=== PATIENT | female | born 1955 | race American Indian/Alaskan Native ===

== ENCOUNTER 2016-09-09 09:15 | Outpatient (CLI) | payer OTHER ==
--- NOTE | 2016-09-09 10:09 | Mammography Report ---
Screening mammogram: The patient had this exam on the above date . It was indicated to us that previous films should be available that would be helpful in providing optimal evaluation with regards to the current study. A final report will be issued, pending receipt of the prior study. CAD was utilized. BI-RADS CATEGORY: 0 = Needs additional imaging evaluation ACR BI-RADS MAMMOGRAPHIC CODES: 0 = Needs additional imaging evaluation; 1 = Negative; 2 = Benign; 3 = Probably benign; 4 = Suspicious; 5 = Malignant; 6 = Known biopsy-proven malignancy COMMENT: 1. Dense breast tissue, i.e., adenosis, fibrocystic changes, etc., may obscure an underlying neoplasm. 2. Approximately 10% of cancers are not detected with mammography. 3. A negative mammography report should not delay biopsy if a clinically suspicious mass is present.
== END 2016-09-09 09:16 | disposition home or self-care (01) ==
LOC: MAMMO 09:15
PROVIDERS: ATTEND Internal Medicine
DX: Z12.31 Encounter for screening mammogram for malignant neoplasm of breast (principal)
CPT/HCPCS: 77067; G0202

== ENCOUNTER 2020-09-17 10:43 | Outpatient (CLI) | payer MEDICARE ==
--- NOTE | 2020-09-17 14:50 | PET Report ---
PET CT Indication: Ovarian cancer initial staging. C 56.2 . E11.9 Technique: A total of 15.78 mCi F-18 FDG injected IV per protocol into the left wrist to 11:57 AM wit h a scan time of 12:46 PM on the same day. CT was utilized for dose attenuation and anatomic localiza tion.. The fasting blood glucose measured 95 mg/dL. The scan occurred from the skull base to the uppe r thighs. Comparison: None available Findings: No abnormal radiotracer uptake is identified within the head/neck, chest, or upper abdomen. . There is postoperative change consistent with total abdominal hysterectomy with bilateral nephrecto my. There is some heterogeneous increased hypermetabolic uptake identified in the region of the right pelvic sidewall, SUV max measuring 3.6. There is expected GI and excretion of radiotracer. No abn ormal osseous uptake is appreciated. Incidentally several enlarged cyst are present within both kidne ys. IMPRESSION: Status post total abdominal hysterectomy with bilateral oophorectomy. Mildly increased hy permetabolic uptake identified along the right pelvic sidewall the region of the right obturator. 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 Recommend close attention on fol low-up. No evidence of intrathoracic metastatic disease. Signer Name: Russ Henderson MD Signed: 09/17/2020 2:46 PM Workstation Name: [id number]
== END 2020-09-17 10:44 | disposition home or self-care (01) ==
LOC: PET 10:43
PROVIDERS: ATTEND Internal Medicine Hematology & Oncology
DX: C56.2 Malignant neoplasm of left ovary (principal); E11.9 Type 2 diabetes mellitus without complications; N28.1 Cyst of kidney, acquired; Z90.5 Acquired absence of kidney; Z90.710 Acquired absence of both cervix and uterus
CPT/HCPCS: 78815; 82962; A9552

== ENCOUNTER 2020-12-25 11:47 | Outpatient (CLI) | payer MEDICARE ==
[2020-12-25 12:26] LABS: Blood Urea Nitrogen 9 mg/dL (7-17)
--- NOTE | 2020-12-25 15:40 | Cat Scan Report ---
CT CHEST WITH CONTRAST INDICATION / CLINICAL INFORMATION: MALIGNANT NEOPLASM OF OVARY/UNSPECIFIED LATERALLY OMNI 300 100 ML. TECHNIQUE: Axial CT images were obtained through the chest after IV contrast. [facility] CT scans [facility] are performed using CT dose reduction for ALARA by means of automated exposure control. COMPARISON: PET/CT 09/17/2020 FINDINGS: HEART: No significant abnormality CORONARY ARTERY CALCIFICATION: Multivessel calcifications THORACIC AORTA: No significant abnormality. MEDIASTINUM / HARPREET: No significant abnormality. PLEURA: No pleural effusion. No pneumothorax. LUNGS: No acute air space or interstitial disease. No suspicious nodule or mass ADDITIONAL FINDINGS: Right-sided Port-A-Cath is demonstrated with tip terminating in the distal SVC. There is a approximately 4 to 5 cm soft tissue mass underlying the left latissimus dorsi muscle in th e left lateral chest side wall which demonstrates some internal punctate calcifications. UPPER ABDOMEN: Hepatic steatosis and large left renal cyst. SKELETAL SYSTEM: No significant abnormality. IMPRESSION: 4 to 5 mm soft tissue mass with internal calcifications within the superficial left chest wall underl lexi the left latissimus dorsi muscle. Neoplasm cannot be excluded and percutaneous biopsy is recomme nded. No findings of intrathoracic metastatic disease. No significant interval change compared to reference exam from September 2020. Signer Name: Pierre Scott MD Signed: 12/25/2020 3:36 PM Workstation Name: [id number]
--- NOTE | 2021-01-05 08:05 | Cat Scan Report ---
CT ABDOMEN AND PELVIS WITH CONTRAST INDICATION / CLINICAL INFORMATION: MALIGNANT NEOPLASM OF OVARY/UNSPECIFIED LATERALLY. TECHNIQUE: Axial CT images were obtained through the abdomen and pelvis after 100 cc IV contrast. Sagittal and c oronal reformatted images. All CT scans at this location are performed using CT dose reduction for AL ANGELI by means of automated exposure control. COMPARISON: PET/CT dated 09/17/2020 Comment: This examination is just presented to me for interpretation secondary to technical factors a [facility]. FINDINGS: LOWER CHEST: The visualized lung bases are well-aerated. Previously described 4-5 cm soft tissue mass with calcifications in the left lateral chest wall is again noted. Please refer to CT chest report. LIVER: Mild hepatic steatosis. No enlargement or focal liver lesion is detected. GALLBLADDER: No significant abnormality. BILE DUCTS: No significant abnormality. PANCREAS: No significant abnormality. SPLEEN: No significant abnormality. ADRENALS: No significant abnormality. RIGHT KIDNEY and URETER: Stable scattered right renal cysts with the largest measuring 2.3 cm near mi d pole. LEFT KIDNEY and URETER: Stable cysts at the superior pole of the left kidney with the largest measuri ng 8.2 cm. STOMACH and SMALL BOWEL: No significant abnormality. COLON: No significant abnormality. APPENDIX: No significant abnormality. PERITONEUM: No free fluid. No free air. No fluid collection. LYMPH NODES: No significant adenopathy. AORTA and ARTERIES: No significant abnormality. IVC and VEINS: No significant abnormality. URINARY BLADDER: No significant abnormality. REPRODUCTIVE ORGANS: Stable hysterectomy changes. ADDITIONAL FINDINGS: None. SKELETAL SYSTEM: Stable thoracolumbar spondylosis. No suspicious bony lesion is detected. IMPRESSION: No evidence for disease recurrence or metastasis in the abdomen or pelvis. Stable findings since the PET CT dated 09/17/2020. Signer Name: Ernesto Brooks Jr, MD Signed: 01/05/2021 8:00 AM Workstation Name: [id number]
== END 2020-12-25 11:48 | disposition home or self-care (01) ==
LOC: CT 11:47
PROVIDERS: ATTEND Obstetrics & Gynecology
DX: R22.2 Localized swelling, mass and lump, trunk (principal); C56.9 Malignant neoplasm of unspecified ovary; K76.0 Fatty (change of) liver, not elsewhere classified; N28.1 Cyst of kidney, acquired; I25.10 Atherosclerotic heart disease of native coronary artery without angina pectoris
CPT/HCPCS: 36415; 71260; 74177; 82565; 84520; Q9967

== ENCOUNTER 2020-12-31 11:40 | Outpatient (CLI) | payer MEDICARE ==
--- NOTE | 2020-12-31 14:49 | PET Report ---
PET/CT HISTORY: C56.2 /E 11.9. 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 The patient weighed 175 lbs. The patient wa s injected with 13.4 mCi of FDG in the left antecubital fossa at 1228 and imaging was started at 1322 . The patient was imaged from the skull base to the thighs. All CT scans at this location are perfor med using CT dose reduction for ALARA by means of automated exposure control. Images were reviewed on a workstation. COMPARISON: 09/17/2020 FINDINGS: IMAGED BRAIN: Physiologic FDG uptake. NECK: Physiologic FDG uptake. CHEST WALL: Previously described 3.8 x 2.7 cm soft tissue density lesion with focal calcifications i n the left lateral chest wall is unchanged in size and metabolic activity with max SUV measuring 1.6. . MEDIASTINUM: Physiologic FDG uptake. LUNGS: Physiologic FDG uptake. HEPATOBILIARY: Physiologic FDG uptake. PANCREAS: Physiologic FDG uptake. SPLEEN: Physiologic FDG uptake. KIDNEYS/BLADDER: Physiologic FDG uptake. Stable bilateral renal cysts. ADRENAL GLANDS: Physiologic FDG uptake. GI/MESENTERY: Physiologic FDG uptake. No convincing mesenteric deposits are detected. PELVIC VISCERA: Physiologic FDG uptake. Stable total hysterectomy changes. Previously described upta ke in the right pelvic sidewall has resolved and was presumably postsurgical in nature. LYMPH NODES: Physiologic FDG uptake. OSSEOUS STRUCTURES: Physiologic FDG uptake. ADDITIONAL FINDINGS: None. IMPRESSION: Essentially negative PET/CT. No evidence for disease recurrence or metastasis. No change in the previously described left lateral chest wall lesion since 09/17/2020. The etiology of this is unclear. Signer Name: Ernesto Brooks Jr, MD Signed: 12/31/2020 2:45 PM Workstation Name: [id number]
== END 2020-12-31 11:41 | disposition home or self-care (01) ==
LOC: PET 11:40
PROVIDERS: ATTEND Internal Medicine Hematology & Oncology
DX: C56.2 Malignant neoplasm of left ovary (principal); E11.9 Type 2 diabetes mellitus without complications
CPT/HCPCS: 78815; 82962; A9552

== ENCOUNTER 2021-01-27 09:24 | Day surgery (SDC) | payer MEDICARE ==
[2021-01-27] MEDS ORDERED: HYDROmorphone 1 MG/1 ML INJ IV NR (10:08)
[2021-01-27] MEDS ORDERED: ONDANSETRON 4 MG/2 ML INJ IV NR (10:08)
[2021-01-27 12:13] LABS: INR 0.97 (0.87-1.13)
[2021-01-27 13:36] VITALS: BP 110/64
--- NOTE | 2021-01-27 13:45 | Cat Scan Report ---
CT-GUIDED LYMPH NODE SUPERFICIAL LEFT INDICATION : Soft tissue mass left chest wall. COMPARISON: PET/CT 12/31/2020 PROCEDURE: The risks (including but not limited to bleeding and infection) and benefits were explain ed to the patient and informed consent was obtained. All CT scans at this location are performed usi ng CT dose reduction for ALARA by means of automated exposure control. A time out procedure was performed. The procedure site was prepped and draped in the usual sterile f ashion and lidocaine was used for local anesthesia. 1 mg of IV Dilaudid was used for anxiolysis. Using CT guidance, a 17-gauge introducer needle was advanced to the leading edge of a 4.3 x 2.5 cm so ft tissue mass in the left lateral chest wall. 3 separate 18-gauge core biopsies were obtained. Patho logy was present and deemed the samples adequate. The patient tolerated the procedure well with no complications. IMPRESSION: Successful CT-guided biopsy of the left lateral chest wall mass as described. Signer Name: Ernesto Brooks Jr, MD Signed: 01/27/2021 1:41 PM Workstation Name: [id number]
== END 2021-01-27 13:55 | disposition home or self-care (01) ==
LOC: CATHLABREC 09:24
PROVIDERS: ATTEND Internal Medicine Hematology & Oncology
DX: C56.2 Malignant neoplasm of left ovary (principal); E11.9 Type 2 diabetes mellitus without complications; I10 Essential (primary) hypertension; E78.00 Pure hypercholesterolemia, unspecified; Z87.891 Personal history of nicotine dependence; Z79.899 Other long term (current) drug therapy; Z90.710 Acquired absence of both cervix and uterus; Z98.890 Other specified postprocedural states
CPT/HCPCS: 36415; 38505; 77012; 85610; 88172; 88173; 88177; 88305; 88342; J1170; J2405; 88104; 88307

== ENCOUNTER 2021-04-03 09:04 | Emergency (ER) | payer MEDICARE ==
--- NOTE | 2021-04-03 09:44 | Emergency Department Report ---
ED General Adult HPI - General Chief complaint: Urogenital-Female Stated complaint: LUMP ON RIGHT BREAST Time Seen by Provider: 04/03/21 09:39 Source: patient Mode of arrival: Ambulatory Limitations: No Limitations - History of Present Illness Initial comments: The patient was evaluated in the emergency department for symptoms described in the history of present illness. He/she was evaluated in the context of the global COVID-19 pandemic, which necessitated consideration that the patient might be at risk for infection with the virus that causes COVID-19. Institutional protocols and algorithms that pertain to the evaluation of patients at risk for COVID-19 are in a state of rapid change based on information released by regulatory bodies including the CDC and federal and state organizations. These policies and algorithms were followed during the patient's care in the emergency department. Please note that these policies, procedures and recommendations changed on a rapid basis. 65-year-old -[place] Citizen female presents to the emergency room for 1 day history of left breast swelling and pain. Patient states that the pain started last night and she has been having difficulty sleeping secondary to pain. She did not take anything for the pain. She states she is due for mammogram. She does have a history of ovarian cancer. She is followed by [facility]. She denies any fever chills no drainage from the nipple. -: Last night Location: left (Breasts) Severity scale (0 -10): 4 Quality: stabbing, aching, sharp Consistency: constant Improves with: none Worsens with: movement Associated Symptoms: denies other symptoms Treatments Prior to Arrival: none - Related Data Previous Rx's Medication Instructions Recorded Last Taken Type Amoxicillin/K Clav Tab [Augmentin 1 tab PO Q12HR 7 Days #14 tab 04/03/21 Unknown Rx 875 mg] Ibuprofen [Motrin 800 MG tab] 800 mg PO Q8HR PRN #21 tablet 04/03/21 Unknown Rx Allergies Allergy/AdvReac Type Severity Reaction Status Date / Time No Known Allergies Allergy Unverified 09/09/16 09:16 ED Review of Systems ROS: Stated complaint: LUMP ON RIGHT BREAST Other details as noted in HPI Comment: All other systems reviewed and negative ED Past Medical Hx - Past Medical History Previous Medical History?: Yes Hx Hypertension: Yes Hx Diabetes: Yes Hx of Cancer: Yes (ovarian) Additional medical history: chemo for ovarian cancer - Surgical History Past Surgical History?: Yes Additional Surgical History: Ovary removal, Lymph nodes - Social History Smoking Status: Former Smoker - Medications Home Medications: Home Medications Medication Instructions Recorded Confirmed Last Taken Type Amoxicillin/K Clav Tab [Augmentin 1 tab PO Q12HR 7 Days #14 tab 04/03/21 Unknown Rx 875 mg] Ibuprofen [Motrin 800 MG tab] 800 mg PO Q8HR PRN #21 tablet 04/03/21 Unknown Rx ED Physical Exam - General Limitations: No Limitations General appearance: alert, in no apparent distress - Head Head exam: Present: atraumatic, normocephalic - Eye Eye exam: Present: normal appearance - ENT ENT exam: Present: mucous membranes moist - Neck Neck exam: Present: normal inspection, full ROM - Respiratory Respiratory exam: Present: other (Left breast swelling around the areola with warmth and erythematous no discharge from the nipple). Absent: respiratory distress, chest wall tenderness, accessory muscle use - Cardiovascular Cardiovascular Exam: Present: regular rate - Back Exam Back exam: Present: normal inspection - Neurological Exam Neurological exam: Present: alert, oriented X3, normal gait - Psychiatric Psychiatric exam: Present: normal affect, normal mood ED Course Vital Signs 04/03/21 04/03/21 09:28 09:30 Temperature 97.8 F 97.8 F Pulse Rate 87 87 Respiratory 20 Rate Blood Pressure 114/74 114/74 [Left] Blood Pressure 114/74 [Right] O2 Sat by Pulse 96 Oximetry ED Medical Decision Making - Medical Decision Making 65-year-old -[place] Citizen female presents to the emergency room for 1 day history of left breast swelling and pain. Patient states that the pain started last night and she has been having difficulty sleeping secondary to pain. She did not take anything for the pain. She states she is due for mammogram. She does have a history of ovarian cancer. She is followed by [facility]. She denies any fever chills no drainage from the nipple. Patient be treated for cellulitis of the left breast with Augmentin and pain medicine ibuprofen discussed with patient to follow-up at [facility] where her primary care provider is and that she needs to have her mammogram updated. Critical care attestation.: If time is entered above; I have spent that time in minutes in the direct care of this critically ill patient, excluding procedure time. ED Disposition Clinical Impression: Cellulitis of left breast Disposition: HOME / SELF CARE / HOMELESS Is pt being admited?: No Does the pt Need Aspirin: No Condition: Stable Instructions: Cellulitis, Adult, [id number] Additional Instructions: Complete antibiotics as prescribed. Pain medication as needed. Is very important you follow-up with your primary care provider as you will may need to have a mammogram done. Prescriptions: Amoxicillin/K Clav Tab [Augmentin 875 mg] 1 tab PO Q12HR 7 Days #14 tab Ibuprofen [Motrin 800 MG tab] 800 mg PO Q8HR PRN #21 tablet PRN Reason: Pain , Severe (7-10) Referrals: [facility] [Provider Group] - 3-5 Days Time of Disposition: 09:42
[2021-04-03 10:23] VITALS: BP 114/83
== END 2021-04-03 10:14 | disposition home or self-care (01) ==
LOC: ED 09:04
DX: N61.0 Mastitis without abscess (principal); I10 Essential (primary) hypertension; E11.8 Type 2 diabetes mellitus with unspecified complications; F17.200 Nicotine dependence, unspecified, uncomplicated
CPT/HCPCS: 99282

== ENCOUNTER 2021-04-21 10:32 | Outpatient (CLI) | payer MEDICARE ==
--- NOTE | 2021-04-21 13:46 | Ultrasound Report ---
BILATERAL DIGITAL DIAGNOSTIC MAMMOGRAM WITH CAD CONVENTIONAL, 04/21/2021 LEFT LIMITED BREAST ULTRASOUND CLINICAL INFORMATION / INDICATION: Patient presents for evaluation of an area of palpable concern in the left breast. Patient had recent cellulitis of the left breast for which she completed a 12 day co urse of antibiotics. Patient reports improvement of pain and swelling, though she has a persistent ar ea of palpable concern. TECHNIQUE: Digital bilateral mammographic imaging was performed. Spot compression views were obtained . Limited ultrasound was performed. This examination was interpreted with the benefit of Computer-Aid ed Detection (CAD) analysis. COMPARISON: Prior mammogram 09/09/2016 FINDINGS: Breast Density: There are scattered areas of fibroglandular density. MAMMOGRAPHIC FINDINGS: No dominant mass, suspicious calcifications, or architectural distortion in th e right breast. Corresponding with the site of palpable concern in the anterior subareolar left breas t, there is suggestion of focal duct ectasia which appears more prominent compared with the prior exa mination. Additionally, there is increased focal asymmetric density extending from the subareolar pos ition along the 3-4 o'clock segment of the left breast, spanning up to approximately 10 cm in extent. A biopsy clip is noted in the anterior 3:00 position of the left breast (this has migrated slightly lateral from the prior examination, at which time it was in the anterior subareolar position), and th ere is a stable biopsy clip seen in the subareolar right breast. ULTRASOUND FINDINGS: Targeted ultrasound evaluation was performed of the area of interest. Targeted ultrasound of the area of palpable concern in the subareolar left breast reveals dilated ducts with internal debris, but no solid intraductal mass. Corresponding with the focal asymmetric density seen mammographically, there is edematous change throughout the 3 to 4:00 position of the left breast, wit hout discrete mass. IMPRESSION: 1. Focal duct ectasia and debris is seen at the site of palpable concern in the subareolar left breas t. There is contiguous edema extending along the 3 to 4:00 position of the left breast, without discr ete mass identified. Given the provided clinical history of recent cellulitis of the left breast, thi s is favored to represent sequela of mastitis and is considered probably benign. Recommend clinical c orrelation and short interval follow-up left diagnostic mammogram and ultrasound in 3 months to ensur e improvement or resolution. Follow up recommendation: Short term follow up in 3 months. BI-RADS Category 3: Probably Benign. Followup in 3 months. A "normal" or negative report should not discourage follow up or biopsy of a clinically significant f inding. A written summary of these findings will be mailed to the patient. The patient will be entered into a mammography reporting system which will generate a reminder letter for the patient's next appointmen t at the appropriate interval. According to the [employer], yearly mammograms are recommended starting at age 40 and continuing as long as a woman is in good health. Breast MRI is recommended for women with an clarissa roximately 20-25% or greater lifetime risk of breast cancer, including women with a strong family his tory of breast or ovarian cancer and women who have been treated for Hodgkin's disease. Signer Name: Mya Carpio MD Signed: 04/21/2021 1:41 PM Workstation Name: [id number]
== END 2021-04-21 10:33 | disposition home or self-care (01) ==
LOC: MAMMO 10:32
PROVIDERS: ATTEND Obstetrics & Gynecology
DX: N60.42 Mammary duct ectasia of left breast (principal); R92.8 Other abnormal and inconclusive findings on diagnostic imaging of breast
CPT/HCPCS: 77066